=== PATIENT | male | born 1950 | race Caucasian/White ===

== ENCOUNTER 2023-05-31 15:59 | Inpatient (IN) | payer OTHER, SELFPAY ==
[2023-05-31] VITALS (40 sets, daily range): BP systolic 71–141; BP diastolic 40–99; PULSE 2; BMI 34.6; BMI 34.4; BMI 35.6
--- NOTE | 2023-05-31 13:19 | ED.GENMED ---
History of Present Illness
General
Chief Complaint: Abdominal Symptoms
Source: ambulance crew
Time Seen by Provider: 05/31/23 13:19
History of Present Illness
History of Present Illness:
This patient is a 73-year-old male who presents emergency department via medics because of 'coughing up blood'. The patient states that over the last few days he has had ongoing congestion associated with generalized weakness. He denies associated
fever, chills, nausea, vomiting, abdominal pain. 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 At that time, he had 3-4 episodes of coughing up blood, no clots noted. The blood is bright
red blood. He also notes that he had an episode of diarrhea today and it was black in color. Medics noted that patient was hypotensive with a systolic blood pressure of 70, which increased to 100 after 300 cc of normal saline. EMS EKG
unremarkable. Patient was noted to be hypoxic, but came up to 94% on 6 L of nasal cannula. Patient now feels weak and short of breath. When asked about pain he does note mild discomfort in the right anterior chest wall and lower back area. He is
unclear if it is pleuritic in nature. Patient is not on blood thinning medication, with the exception of aspirin.
Past History
Past History
ED Past Medical History: HTN
ED Past Surgical History: Cardiac (av replacement)
Social History
Tobacco: Non-smoker
Drug: None
Employment: Employed
Phy Exam
Physical Exam
Physical Exam:
GENERAL: Alert , in no apparent distress
EYE: pupils equal and reactive
NECK: Supple, no significant adenopathy.
ENT: o/p clr, mm slightly dry, dried blood noted about patient's lips
CARDIAC: Regular rate and rhythm .
LUNGS: Equal breath sounds bilaterally, diffuse rhonchi noted with scattered wheezing, no stridor
ABDOMEN: Soft, without focal tenderness, no r/g, no cvat
NEUROLOGICAL: Alert and oriented, no focal neuro deficits
SKIN: Warm and dry, skin intact.
MUSCULOSKELETAL: No edema, well perfused.
PSYCH: Normal and appropriate interaction.
Course
Orders/Labs/Results
Orders:
Orders
05/31/23 13:10
EKG [Electrocardiogram (*1)] Urgent
Reason for Study: Chest Pain
05/31/23 13:11
EKG- Treatment ONCE
05/31/23 13:13
Complete Blood Count/With Diff Urgent
Manual Differential Urgent
PTT Urgent
Prothrombin Time Urgent
05/31/23 13:16
CT Chest Pe Study Urgent
Comment:
Reason For Exam: coughing blood
05/31/23 13:19
Ipratropium/Albuterol Sulfate [Duoneb] 3 ml .ROUTE .STK-MED ONE
05/31/23 13:20
Ipratropium/Albuterol Sulfate [Duoneb] 3 ml INH R NOW STA
05/31/23 13:21
Lactate Level [Lactic Acid] Urgent
Blood Culture Q30M
ERIC Source: Blood/Venous
Specimen Description:
05/31/23 13:24
0.9% Sodium Chloride 250 ml [Nss] 250 ml IV BOLUS
Ipratropium/Albuterol Sulfate [Duoneb] 3 ml INH R NOW STA
05/31/23 13:39
Comprehensive Metabolic Panel Urgent
NT-proBNP Urgent
Troponin I Urgent
Blood Culture Q30M
ERIC Source: Blood/Venous
Specimen Description:
05/31/23 14:12
Type+Screen Urgent
BBK Wristband Number:
05/31/23 14:16
Morphine Sulfate 2 mg .ROUTE .STK-MED ONE
05/31/23 14:19
Morphine Sulfate 2 mg IV NOW STA
05/31/23 14:37
Piperacillin/Tazo 4.5 Gram [Zosyn] 4.5 gram in 100 ml IV NOW
05/31/23 14:48
NORepinephrine 4 MG/250 ML [Levophed] 4 mg in 250 ml .ROUTE .STK-MED
Propofol 1,000,000 Mcg/100 ml [Diprivan] 1,000,000 mcg in 100 ml .ROUTE .STK-MED
05/31/23 14:54
COVID-19 Antigen Urgent
Source: Nasal Swab
Influenza A+B Rapid Molecular Urgent
ERIC Source: Nasal Swab
Specimen Description:
05/31/23 15:07
ABG [Arterial Blood Gas] Urgent
%Oxygen/Room Air: 100
05/31/23 15:31
Admit/Transfer Patient As Directed
Co-Sign Provider:
Level of Care: Inpatient admission
Assign to:: ICU
Physician / Group: Ancelmo
Diagnosis: Pneumonia, Sepsis
Reason for Hospitalization: Above
Expected length of stay greater than two midnights?: Yes
ELOS- Estimated Length of Stay in days: 3
I certify the patient meets the requirements for IP care: Yes
05/31/23 15:34
Code Status As Directed
Resuscitation Status: Full Code
05/31/23 15:39
FentaNYL 1,000 MCG/100 ML [Sublimaze] 1,000 mcg in 100 ml .ROUTE .STK-MED
05/31/23 15:40
Portable Chest Xray [CR Chest Portable - 1 View] Urgent
Comment:
Reason For Exam: post intubation
Reason Study Needs to be Portable: Patient Unstable
Abnormal Lab Results
05/31/23 05/31/23 05/31/23
13:13 13:21 13:39
MCH 31.4 H pg
(27.0-31.0)
Plt Count 97 L 10^3/uL
(130-400)
Band Neutrophils 23 H %
(0-3)
Lymphocytes (Manual) 10 L %
(20-51)
PT 17.1 H Sec
(11.4-14.6)
pH
pCO2
pO2
ABG O2 Sat (Measured)
BUN 30 H mg/dl
(9-20)
Creatinine 2.4 H mg/dL
(0.7-1.3)
Glucose 109 H mg/dl
(70-99)
Lactic Acid 3.8 H mmol/L
(0.7-2.0)
Total Bilirubin 1.5 H mg/dl
(0.2-1.3)
05/31/23
15:07
MCH
Plt Count
Band Neutrophils
Lymphocytes (Manual)
PT
pH 7.21 L
(7.35-7.45)
pCO2 55 H mmHg
(35-48)
pO2 66 L mmHg
(83-108)
ABG O2 Sat (Measured) 92.1 L %
(94-98)
BUN
Creatinine
Glucose
Lactic Acid
Total Bilirubin
05/31/23 13:13
05/31/23 13:39
Vital Signs
Initial and Last Documented VS:
Initial Vital Signs
Pulse Resp Pulse Ox
82 27 99
05/31/23 13:24 05/31/23 13:24 05/31/23 13:24
Last Documented Vital Signs
Pulse Resp BP Pulse Ox
99 27 101/53 92
05/31/23 15:45 05/31/23 15:45 05/31/23 15:45 05/31/23 15:45
Update Note
Update Note:
Patient presents to the Emergency Department with _congestion, dyspnea, and coughing up blood
Number and Complexity of Problems Addressed at the Encounter
� Chronic conditions affecting care:
� Acute Exacerbation and/or Progression of Chronic Illness:
� Differential Diagnosis includes: PE, pneumonia/bronchitis, lung mass, bleeding disorder, etc.
Amount and/or Complexity of Data to be Reviewed and Analyzed
� I performed an independent evaluation of and my interpretation is:
EKG: Read by me, normal sinus rhythm with first-degree block, nonspecific T wave flattening laterally, no acute ischemia
CT:No evidence of central pulmonary embolism.
Large right upper lobe consolidation with air bronchograms most likely representing pneumonia. Endobronchial lesion within the posterior segment of the upper lobe of the right lung with postobstructive atelectasis cannot be excluded. Recommend
short-term follow-up Chest CT to confirm complete resolution.
Xrays:
Laboratory Studies:
Other:
� Review of other/old records reveals: None available
� Clinical information was obtained by an independent historian: EMS
� Prescriptions/Medications Considered but not given:
� Further testing considered but not performed:
Risk of Complications and/or Morbidity or Mortality of Patient Management
� Social determinants of health affecting care:
� Discussion with other providers (PCP, Hospitalists, Consultants, etc):
253pm....immediately after CT chest done, case d/w pulsarthak (mikhail), will see pt in ED. I then reviewed labs, etc, and started abx. bp remians stable. Hospitalist notified. However, just a few moments ago, called into room b/c of increased wob
and hypoxia on the 6L...noted to have pox of 78%. No cp. NRB applied while resp called, ox 94% on NRB, we are now applying bipap while preparing for intubation if needed.
� Escalation of care including admission/observation vs risk of discharge considered:
ED Attending Note
-
Portions of this chart may have been created with voice recognition software.� Occasional wrong word or��sound alike� substitutions may have occurred due to the inherent limitations of voice recognition software.
Discharge Plan
Departure
Patient Disposition: Admit
Date of Disposition: 05/31/23
Time of Disposition: 16:31
Admit to: ICU
Presentation/result/management discussed w/ accepting MD/DO: Hospitalist
[2023-05-31] MEDS: DUONEB 3 ML INH ×3 (13:29→20:41)
[2023-05-31 13:30] LABS: Hematocrit 44.6 % (39.0-52.0); Hemoglobin 15.2 g/dL (13.0-18.0); Mean Corp Hgb Conc. 34.1 g/dL (33.0-37.0); Mean Corpuscular Hgb 31.4 pg (27.0-31.0); Mean Corpuscular Volume 92.1 fL (80.0-94.0); Nucleated Red Blood Cells % 0 % (-); Red Blood Cell Count 4.84 10^6/uL (4.70-6.10); Red Cell Dist. Width 12.9 % (11.5-14.5); White Blood Cell Count 5.8 10^3/uL (4.8-10.8)
[2023-05-31] MEDS: NSS 250 IV ×2 (13:30→22:50)
[2023-05-31 13:39] LABS: INR 1.42; PT 17.1 Sec (11.4-14.6)
[2023-05-31 13:40] LABS: APTT 34.4 Sec (23.4-35.0)
[2023-05-31 13:42] LABS: Lactic Acid 3.8 mmol/L (0.7-2.0)
[2023-05-31 14:10] LABS: ALT (SGPT) 30 U/L (0-50); AST (SGOT) 39 U/L (17-59); Albumin 3.9 g/dl (3.5-5.0); Alkaline Phosphatase 62 U/L (38-126); Blood Urea Nitrogen 30 mg/dl (9-20); Calcium 8.8 mg/dl (8.4-10.2); Carbon Dioxide 27 mmol/L (22-30); Chloride 102 mmol/L (98-107); Estimated Creatinine Clearance 35 ml/min; Glucose 109 mg/dl (70-99); Potassium 3.9 mmol/L (3.5-5.1); Sodium 136 mmol/L (135-145); Total Bilirubin 1.5 mg/dl (0.2-1.3); Total Protein 7.1 g/dl (6.3-8.2); eGFR 27.45
[2023-05-31 14:18] LABS: NT-proBNP 8710 pg/ml; Troponin I < 0.012 ng/ml
[2023-05-31] MEDS: MORPHINE SULFATE 2 MG IV (14:20)
[2023-05-31 15:04] LABS: Mean Platelet Volume 10.3 fL (7.4-10.4); Platelet Count 97 10^3/uL (130-400)
[2023-05-31] MEDS: ZOSYN 100 IV (15:07)
[2023-05-31 15:08] LABS: Absolute Neutrophils -Man Diff 4.8 10^3/uL (1.4-6.5); Band Neutrophils 23 % (0-3); Lymphocytes 10 % (20-51); Monocytes 7 % (2-9); Segmented Neutrophils 60 % (42-75)
[2023-05-31 15:09] LABS: Normal RBC Morphology Yes; Platelets Checked Yes; Total Cells Counted 100
[2023-05-31 15:23] LABS: B.E. -6.5 mmol/L; O2 Saturation % 92.1 % (94-98); PCO2 55 mmHg (35-48); PO2 66 mmHg (83-108); pH 7.21 (7.35-7.45)
[2023-05-31 15:23] LABS: COVID-19 Antigen Negative (Negative)
--- NOTE | 2023-05-31 15:24 | EDRN ---
Hospitalist at the bedside. This RN updated Dr. Godfrey of the status of the patient on the BiPap - when speaking the SPO2 drops down to 80% and takes a few minutes to recover.
--- NOTE | 2023-05-31 15:41 | EDRN ---
Patient unable to tolerate the BiPap as evidenced by tachypnea, head bobbing, desaturation with speaking and movement.
Intubation to be completed by Dr. Godfrey
Etomidate 20mg IVP at 1545
Anectine 125mg IVP at 1547
7.5 ETT placed 24 at the lips with positive color change, equal bilateral breath sounds SPO2 was 96% and ETCO2 57.
--- NOTE | 2023-05-31 15:43 | HPS.HSE ---
Family Physician
-
Family Physician: Marlon Ramsey
Chief Complaint
-
Shortness of breath.
History of Present Illness
Patient is a 73 years old male with history of diabetes, hypertension, obstructive sleep apnea, aortic stenosis status post aortic valve replacement who presents to the emergency room with 3 to 4 days of upper respiratory symptoms that patient
describes as congestion. Patient has been taking DayQuil. He had developed worsening of his symptoms with now persistent cough and hemoptysis. He also complains of loose stools over the last 24 to 48 hours. He had not been taking any
antibiotics. 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 He presents to the emergency room with severe worsening of shortness of breath, cough with reported hemoptysis. He denies any fever.
While in the emergency room patient found to be severely hypoxic with pulse ox down to low 80s on room air. In addition he was found to be hypotensive.
His further workup with CT scan of the chest showed large right upper lobe pneumonia and study was negative for pulmonary embolism.
Patient initiated on BiPAP, Zosyn, given bolus of IV fluids.
At the time of my examination patient is in upright position with increased work of breathing, noted to be lethargic, remains hypotensive after initial 250 mL of fluid bolus.
Medical History
Past Medical History
Past Medical History: Reports HTN, NIDDM and Other (Obstructive sleep apnea on CPAP at night.); Denies Arrhythmia, Cancer, CHF or COPD
Past Surgical History: Reports Other (Bioprosthetic aortic valve 2015 at [facility])
Social History
Tobacco: Non-smoker
Drug: None
Personal:
Living: With Family
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
Family History
Family History: Not pertinent
Allergies / Home Medications
Allergies reflects when Allergies were last updated in [facility].
Home Medications with original date entered in [facility]
Allergy/Medication List:
Allergies
Allergy/AdvReac Type Severity Reaction Status Date / Time
bee venom protein (honey bee) Allergy Hives Verified 05/31/23 13:24
Home Medications
Dayquil 1 dose PO DAILYPRN PRN cough 05/31/23
aspirin 81 mg tablet,delayed release 81 mg PO DAILY 05/31/23
atorvastatin 10 mg tablet 10 mg PO DAILY 05/31/23
bimatoprost 0.01 % eye drops (Lumigan) 1 drp BOTH EYES DAILY 05/31/23
celecoxib 200 mg capsule 200 mg PO DAILY 05/31/23
kywfgtdpf-AVO-UF-acetaminophen 7.5 mg-60 [id number]/30mL oral liqd 30 ml PO HSPRN PRN cough 05/31/23
empagliflozin 10 mg tablet (Jardiance) 10 mg PO DAILY 05/31/23
esomeprazole magnesium 40 mg capsule,delayed release 40 mg PO DAILY 05/31/23
finasteride 5 mg tablet 5 mg PO DAILY 05/31/23
lisinopril 2.5 mg tablet 2.5 mg PO DAILY 05/31/23
metformin 500 mg tablet 1,000 mg PO BID 05/31/23
metoprolol succinate 25 mg tablet,extended release 24 hr 25 mg PO DAILY 05/31/23
timolol maleate 0.5 % eye drops 1 drp BOTH EYES BID 05/31/23
Review of Systems
-
A 12 point ROS was completed and negative except as noted: Yes
Respiratory: Reports See HPI
Physical Exam
Vital Signs
Vital Signs
Pulse Resp BP Pulse Ox
94 31 110/99 92
05/31/23 14:15 05/31/23 14:15 05/31/23 14:15 05/31/23 14:15
Physical Exam
General: Well Developed, Well Nourished and No Apparent Distress
HEENT: NormoCephalic, Moist mucous membranes and Atraumatic
Respiratory: Clear
Cardiac: S1/S2 and Regular Rhythm; No Murmur or Rub
GI: Soft, Non Tender, Non Distended and Normal Bowel Sounds; No Organomegaly
Rectal: Deferred by Provider
Musculoskeletal: No Clubbing, No Cyanosis and No Edema
Skin: No Rash
Neuro: Nonfocal/grossly intact
Laboratory Results
-
05/31/23 13:13
05/31/23 13:39
Laboratory Results
PT 17.1 Sec (11.4-14.6) H 05/31/23 13:13
INR 1.42 05/31/23 13:13
APTT 34.4 Sec (23.4-35.0) 05/31/23 13:13
pH 7.21 (7.35-7.45) L 05/31/23 15:07
pCO2 55 mmHg (35-48) H 05/31/23 15:07
pO2 66 mmHg (83-108) L 05/31/23 15:07
HCO3 22.0 mmol/L (21-28) 05/31/23 15:07
Lactic Acid 3.8 mmol/L (0.7-2.0) H 05/31/23 13:21
Total Bilirubin 1.5 mg/dl (0.2-1.3) H 05/31/23 13:39
AST 39 U/L (17-59) 05/31/23 13:39
ALT 30 U/L (0-50) 05/31/23 13:39
Alkaline Phosphatase 62 U/L (38-126) 05/31/23 13:39
Troponin I < 0.012 ng/ml 05/31/23 13:39
Data Reviewed
-
CT Scan: Report Reviewed by me
Lab Data: Labs Reviewed by me
Impression/Plan
-
IMPRESSION:
Acute hypoxic/hypercarbic respiratory failure.
Large right upper lobe pneumonia, community-acquired
Hemoptysis reported
Severe sepsis secondary to pneumonia.
Septic shock with hypotension.
Lactic acidosis.
Acute kidney injury.
Mild hyperbilirubinemia
Conditions prior to admission:
Diabetes type 2 [id number].
Dyslipidemia.
Hypertension.
Obstructive sleep apnea on CPAP at night.
Status post bioprosthetic aortic valve 2015.
Obesity with BMI of 34
PLAN:
Acute hypoxic/hypercarbic respiratory failure
Large right upper lobe pneumonia, community-acquired. Given size of infiltrate, as well as hemoptysis high suspicion for underlying lung mass.
Severe sepsis secondary to above
Septic shock with lactic acidosis and acute kidney injury.
Critically ill.
Admit to ICU.
Continue BiPAP
Follow-up with ABG.
If worsening respiratory distress, low threshold for intubation.
Broad-spectrum antibiotics vancomycin/Zosyn pending sputum and blood cultures.
Quantify hemoptysis.
Serial lactic acid level.
[employer] Director consultation
Acute kidney injury secondary to hypotension.
Bladder scan to exclude retention.
IV fluid bolus.
May require vasopressors.
Hold lisinopril.
Essential hypertension.
Hold preadmission lisinopril and metoprolol due to hypotension.
Type 2 diabetes.
Update hemoglobin A1c.
Hold oral medications including metformin and Jardiance.
N.p.o. given aspiration risk in patient with severe respiratory distress.
Basal bolus protocol with serial Accu-Cheks.
IV PPI.
DVT prophylaxis with heparin with caution given reported hemoptysis.
--- NOTE | 2023-05-31 15:57 | W.PN.UPDATE ---
Update Note
Progress Note Update
With worsening respiratory distress and hypotension patient required intubation while in ED
Upon intubation blood noted in tube, on suction иван red blood
Remains with poor saturations.
Will hold heparin and aspirin.
May need endobronchial evaluation.
--- NOTE | 2023-05-31 16:12 | CON.INTV ---
Consultation
Consultation Request
Date/Time Consultation Requested: 05/31/2023 - 1600
Date/Time Consultation Performed: 05/31/2023 - 1611
Requesting Provider: Dr. Ag
Performing Provider: Dr. Araujo
Reason for Consultation: Pneumonia; on ventilator
Medical History
-
Chief Complaint: SOB
History of Present Illness:
73-year-old male with past medical history of DM 2, hypertension, TEJ, and aortic stenosis s/p aortic valve replacement who presents with SOB with congestion for 3-4 days. He also endorsed hemoptysis with worsening cough. In the ER he was found to
be severely hypoxic with SpO2 in the low 80s on room air. Patient also hypotensive. CT scan showed a severe right upper lobe pneumonia. Patient on BiPAP and given antibiotics and IV fluids however respiratory status deteriorated further and he
was intubated. Patient now being transferred to ICU for further care and cable supervisor services consulted for additional management/recommendations.
When I saw the patient the was hypoxic to 83%, with dark red blood being suctioned from ETT. I spoke to family who said that he went fishing the other day and later on in week developed a cough that was associated with bloody phlegm. His symptoms
of cough and shortness of breath progressed which led him to come here to the ICU. No other history of recent pneumonia. No recent travel. No blood thinners besides baby aspirin.
PMHx: HTN, NIDDM, obstructive sleep apnea on CPAP
PSHx: Bioprosthetic aortic valve (2014 � [facility])
Past Medical History
Past Medical History: Other (Above as per HPI)
Past Surgical History: Other (Above as per HPI)
Social History
Tobacco: Non-smoker
Alcohol: None
Drug: None
Personal:
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
Family History
Family History: Reviewed & Not Pertinent
Allergies / Home Medications
Allergies
Allergy/AdvReac Type Severity Reaction Status Date / Time
bee venom protein (honey bee) Allergy Hives Verified 05/31/23 13:24
Home Medications
�Medication �Instructions �Recorded �Confirmed �Last Taken �Type
Dayquil 1 dose PO DAILYPRN PRN cough 05/31/23 05/31/23 05/31/23 History
aspirin 81 mg tablet,delayed 81 mg PO DAILY 05/31/23 05/31/23 05/31/23 History
release
atorvastatin 10 mg tablet 10 mg PO DAILY 05/31/23 05/31/23 05/31/23 History
bimatoprost 0.01 % eye drops 1 drp BOTH EYES DAILY 05/31/23 05/31/23 05/31/23 History
(Lumigan)
celecoxib 200 mg capsule 200 mg PO DAILY 05/31/23 05/31/23 05/31/23 History
iugepzixm-YUK-AX-acetaminophen 7.5 30 ml PO HSPRN PRN cough 05/31/23 05/31/23 05/30/23 History
mg-60 [id number]/30mL oral liqd
empagliflozin 10 mg tablet 10 mg PO DAILY 05/31/23 05/31/23 05/31/23 History
(Jardiance)
esomeprazole magnesium 40 mg 40 mg PO DAILY 05/31/23 05/31/23 05/31/23 History
capsule,delayed release
finasteride 5 mg tablet 5 mg PO DAILY 05/31/23 05/31/23 05/31/23 History
lisinopril 2.5 mg tablet 2.5 mg PO DAILY 05/31/23 05/31/23 05/31/23 History
metformin 500 mg tablet 1,000 mg PO BID 05/31/23 05/31/23 05/31/23 History
metoprolol succinate 25 mg 25 mg PO DAILY 05/31/23 05/31/23 05/31/23 History
tablet,extended release 24 hr
timolol maleate 0.5 % eye drops 1 drp BOTH EYES BID 05/31/23 05/31/23 05/31/23 History
Review of Systems
-
Unable to Obtain full review of systems at this time due to: Acuity and Patient Intubation
Vitals / Labs / Diagnostic Testing
Vital Signs
Pulse Resp BP Pulse Ox
99 27 101/53 92
05/31/23 15:45 05/31/23 15:45 05/31/23 15:45 05/31/23 15:45
Lab Data
05/31/23 13:13
05/31/23 13:39
Laboratory Results
05/31/23 05/31/23
13:13 15:07
PT 17.1 H
INR 1.42
APTT 34.4
pH 7.21 L
pCO2 55 H
pO2 66 L
HCO3 22.0
O2 Delivery Level
Microbiology
05/31/23 14:54 Nasal Swab Influenza Types A & B (KATIA) - Final
Negative for Influenza A & B, NAAT
Negative results must be combined with clinical observations
and patient history.
Nucleic Acid Amplification test (NAAT)performed on the
[employer] platform.
Diagnostic Testing:
Physical Exam
-
HEENT: Normocephalic and Anicteric
Cardiovascular: S1/S2 and Peripheral Edema (Negative)
Respiratory: Wheeze (negative), Rales (Bibasilar), Rhonchi (Left-sided) and Other (ETT in place; mechanical breath sounds heard bilaterally)
GI: Soft, Non Tender, Normal Bowel Sounds and Other (Abdominal obesity)
Neurology: Other (Unresponsive/sedated)
Skin: Warm and Dry
General: Comfortable and Chills (Negative)
Assessment
-
Assessment: 73-year-old male with past medical history of DM 2, hypertension, TEJ, and aortic stenosis s/p aortic valve replacement who presents with SOB with congestion for 3-4 days. He also endorsed hemoptysis with worsening cough. In the ER he
was found to be severely hypoxic with SpO2 in the low 80s on room air. Patient also hypotensive. CT scan showed a severe right upper lobe pneumonia. Patient on BiPAP and given antibiotics and IV fluids however respiratory status deteriorated
further and he was intubated. Patient now being transferred to ICU for further care and cable supervisor services consulted for additional management/recommendations.
Chronic conditions WRAPPER OFF: HTN, NIDDM, Obstructive sleep apnea on CPAP at night
Impression:
#Right upper lobe pneumonia/CAP
#Hemoptysis assist likely due to severe RUL pneumonia
#Acute hypoxic/hypercapnic respiratory failure due to above now on mechanical ventilation
#Acute kidney injury
#Lactic acidosis likely due to sepsis with impending shock
Plan:
- Retract ETT x 3-4 cm
- Administer 2-3L of NS 0.9% given his sepsis with impending shock (IBW: 50kg)
- Continue mechanical ventilation with daily SAT/SBT if clinically appropriate
- Trend blood gas daily with vent adjustments as needed
- Broad-spectrum antibiotics with infectious workup including sputum Cx, MRSA swab, urine antigens for Legionella/strep pneumonia, blood cultures
- Check urinalysis with reflex to urine culture
- Trend CBC and transfuse if needed to keep Hb>7, plt>50k
- If hemoptysis worsens then will consider bronchoscopy for airway visualization
- Maintain SpO2 >90-94%
- Maintain MAP>65
- Replete electrolytes with K>4, Mg>2
- Maintain euglycemia with goal BG 140-180
- nebulized bronchodilators q4hr for first 24 hrs
- Incentive spirometer
- DVT ppx � hold off on chemical prophylaxis for now given his hemoptysis
Critical care statement: A total of 40 minutes of critical care time was provided for this patient today. This includes management of unstable vital signs, evaluation of the patient at bedside, reviewing the patient's pertinent medical records
including radiographs, microbiology, laboratory evaluations, and discussion with primary team, consultants, pharmacy, nutrition, physical therapy, case management, charge nurse, critical care nursing, and respiratory therapy.
Data:
CTA Chest 05-31-2023:
No evidence of central pulmonary embolism.
Large right upper lobe consolidation with air bronchograms most likely representing pneumonia. Endobronchial lesion within the posterior segment of the upper lobe of the right lung with postobstructive atelectasis cannot be excluded. Recommend
short-term follow-up Chest CT to confirm complete resolution.
CXR 05-31-2023:
The endotracheal tube tip projects at the level of the bárbara. Recommend retraction by 3-4 cm.
Sternotomy wires, mediastinal clips, and an aortic valve prosthesis. Right upper lobe airspace consolidation compatible with pneumonia. No large pleural effusion or pneumothorax. The cardiomediastinal silhouette is stable. Chronic degenerative
changes of the spine.
[2023-05-31 17:12] LABS: Glucose - Point of Care 85 mg/dl (70-99)
[2023-05-31] MEDS: NSS 500 IV (17:47)
[2023-05-31] MEDS: LEVOPHED 250 IV ×2 (17:47→22:45)
[2023-05-31 18:11] LABS: Lactic Acid 3.8 mmol/L (0.7-2.0)
[2023-05-31 18:14] LABS: Triglycerides 149 mg/dl (10-149)
[2023-05-31] MEDS: VANCOCIN 540 MG IV (18:28)
[2023-05-31] MEDS: NSS 1000 IV (18:28)
[2023-05-31] MEDS: TYLENOL ORAL SOLUTION 650 MG TUBE (18:32)
[2023-05-31 19:05] LABS: TSH Reflex To Free T4 2.62 uIU/ml (0.47-4.68)
--- NOTE | 2023-05-31 19:07 | PHA.VAN.IN ---
Assessment
- Assessment
Renal Function: Unknown baseline
Maximum Temperature: 103 F rectal 05/30 @ 1800
Concomitant Antimicrobials: piperacillin/tazobactam
Plan
- Plan
Initial / Loading Dose: vanc 2000mg
Maintenance Regimen: dosing by level
Monitoring: random level 05/31 0600
MRSA Screen: Ordered per protocol
Pharmacokinetics Vancomycin I
- -
Patient Age: 73
Patient Sex: Male
Vancomycin Day #: 1
Indication: Pulmonary/Respiratory
Requesting Provider: Dr. Ag
Pertinent Antimicrobial Allergies:
no pertinent antimicrobial allergies
Height / Weight:
Height 6 ft
Actual Weight 115 kg
Pertinent Past Medical History: BMI ~34
- Vital Signs / Lab Results
Temp Pulse Resp BP Pulse Ox
103.0 F H 98 20 73/53 94
05/31/23 18:00 05/31/23 17:17 05/31/23 17:17 05/31/23 17:17 05/31/23 16:55
Lab Results - Hematology
05/31/23
13:13
WBC 5.8
Band Neutrophils 23 H
Lab Results - Chemistry
05/31/23 05/31/23
13:13 13:39
BUN Cancelled 30 H
Creatinine Cancelled 2.4 H
Estimated Creat Clear Cancelled 35
Albumin Cancelled 3.9
05/31/23 05/31/23
13:21 17:42
Lactic Acid 3.8 H 3.8 H
Microbiology Results
05/31/23 17:17 Gram Stain - Preliminary
Sputum
05/31/23 14:54 Influenza Types A & B (KATIA) - Final
Nasal Swab Negative for Influenza A & B, NAAT
Negative results must be combined with clinical observations
and patient history.
Nucleic Acid Amplification test (NAAT)performed on the
[employer] platform.
[2023-05-31 19:18] LABS: Magnesium 1.4 mg/dl (1.6-2.3); Phosphorus 3.8 mg/dl (2.5-4.5)
--- NOTE | 2023-05-31 19:28 | PTCARENOTE ---
Received pt from ER into rm [id number] intubated/sedated. Pt. opens eyes spontaneously, no tracking, does not follow commands. ST on monitor. +1 anasarca. ETT #7.5, 23 @ lip on R side. SpO2 97% on vent settings AC450/20/.100/+12. Mod-lg amt of
thin/bloody secretions. Auscultated coarse breath sounds throughout R lung field. Hypoactive BS, abd round/firm/distended/obese. R nare dobhoff inserted @ 65cm. Godfrey in place draining dark yellow/carl urine. ETT and dobhoff placement confirmed
w x-ray; Dr. Araujo to bedside to review results. Prop/fent- titrated per orders, see flow sheet. Levo gtt initiated to keep MAP >65- see flow sheet. #18 L hand and #18 R AC patent, dressings c/d/i. Family @ beside, updated on plan of care.
Report given to oncoming medical representative RN.
[2023-05-31 19:46] LABS: Cortisol, Random 87.1 ug/dl
[2023-05-31] MEDS: TIMOPTIC 0.5% OPHTHALMIC SOLUTION 1 DROP BOTH EYES (19:59)
[2023-05-31] MEDS: SENNA SYRUP TUBE (20:00)
--- NOTE | 2023-05-31 20:00 | PTCARENOTE ---
Rec'd pt sedated on fent & diprivan gtt, awakens with stimulation, wrsits restrained for pt safety, BAER spont, prince at 2mm, sluggish, temp 102.6, cooling blanket on, to keep MAP > 65 w/ levophed- see flow sheet for updated, Sinus tach, weak pulses,
dusky color, skin cool, # 7.5 oral ett- moved to left side at 23 cm, resp changed vent to APV, tv 450, 12 peep, 100%, sat 89-90, lungs coarse, bloody secretions, hypo bowel sounds, inc loose brown stool, rectal trumpet inserted, left dobhoff clamped
for meds, abd obese, wilson w/ scant carl urine
[2023-05-31 20:09] LABS: Urine Albumin 2+ (Neg - Trace); Urine Bilirubin 1+ (Negative); Urine Character Clear (Clear); Urine Glucose 1+ (Negative); Urine Ketone Trace (Negative); Urine Leukocyte Trace (Negative); Urine Nitrite Negative (Negative); Urine Occult Blood 1+ (Negative); Urine Specific Gravity 1.015 (<1.030); Urine Urobilinogen Negative (Neg - 1+)
[2023-05-31 20:10] LABS: Urine Color Yellow
[2023-05-31 20:22] LABS: Urine Squamous Cell 0-2 /LPF (Few)
[2023-05-31 20:23] LABS: Urine White Cell 0-2 /HPF (0-5)
--- NOTE | 2023-05-31 20:30 | PTCARENOTE ---
R DL PIcc inserted by VAT team, cxr obtained, ok to use per iv team, all tubings changed; B Fina, NPm aware of urine output, no orders recd
[2023-05-31] MEDS: MAGNESIUM SULFATE 50 IV (20:32)
[2023-05-31 22:11] LABS: Venous Blood Gas B.E. -12.4 mmol/L (-4 to +4); Venous Blood Gas HCO3 19.8 mmol/L (22-27); Venous Blood Gas O2 Sat % 94.6 %; Venous Blood Gas pO2 70 mmHg (30-50)
[2023-05-31 22:12] LABS: Venous Blood Gas pH 7.03 (7.32-7.43)
[2023-05-31 22:13] LABS: Venous Blood Gas pCO2 75 mmHg (35-48)
[2023-05-31] MEDS: SUBLIMAZE 50 MCG IV (22:15)
--- NOTE | 2023-05-31 22:15 | PTCARENOTE ---
inc of stool, - rectal trumpet leaking, fecal mgmt suys inserted
[2023-05-31 22:23] LABS: Lactic Acid 3.3 mmol/L (0.7-2.0)
[2023-05-31] MEDS: ZOSYN 50 IV (22:43)
--- NOTE | 2023-05-31 22:50 | PTCARENOTE ---
nss bolus given as ordered for scaNT URINE OUTPUT & BP, b mamie Dupont AWARE OF LABS, Titrating levophed for bp
[2023-05-31] MEDS: OFIRMEV 100 IV (23:00)
--- NOTE | 2023-05-31 23:00 | PTCARENOTE ---
TV incr to 500, ofirmiv 1 gm iv given for temp
[2023-05-31] MEDS: DIPRIVAN 100 IV (23:18)
--- NOTE | 2023-05-31 23:30 | PTCARENOTE ---
Dr novak notified of inability to maintain sat & bloody secretions
0000- changed to ac 24, tv 500, 12 peep, 100%, sats cont 88%, , vasopressin added for low MAP, 1 amp sodium bicarb iv given, to keep left lung donw, CHG bath done
0030 ac incr to 28 by resp
[2023-05-31 23:50] LABS: Venous Blood Gas B.E. -13.9 mmol/L (-4 to +4); Venous Blood Gas HCO3 18.4 mmol/L (22-27); Venous Blood Gas O2 Sat % 91.3 %; Venous Blood Gas pO2 63 mmHg (30-50)
[2023-05-31 23:53] LABS: Venous Blood Gas O2 Therapy 100%
[2023-05-31 23:54] LABS: Venous Blood Gas pCO2 73 mmHg (35-48); Venous Blood Gas pH 7.01 (7.32-7.43)
[2023-05-31 23:55] LABS: Glucose - Point of Care 76 mg/dl (70-99)
[2023-06-01] VITALS (27 sets, daily range): BP systolic 67–145; BP diastolic 34–93; BMI 37.2
[2023-06-01] MEDS: SODIUM BICARBONATE 50 MEQ IV ×6 (00:04→20:46)
[2023-06-01] MEDS: SUBLIMAZE 100 IV ×3 (00:10→18:11)
--- NOTE | 2023-06-01 00:45 | PTCARENOTE ---
left rad jey inserted by Katt Harden POUNCING MACHINE OPERATOR
[2023-06-01 00:50] LABS: HCO3 18.4 mmol/L (21-28); PCO2 54 mmHg (35-48); PO2 61 mmHg (83-108)
[2023-06-01 00:51] LABS: O2 Therapy 2L NC
[2023-06-01 00:52] LABS: pH 7.14 (7.35-7.45)
--- NOTE | 2023-06-01 01:00 | PTCARENOTE ---
cooling blanket off, temp 99.6, Dr Arita in to bronch pt- see report, family updated after procedure by Dr Arita and in to see pt
[2023-06-01] MEDS: SUBLIMAZE 50 MCG IV ×5 (01:01→22:25)
[2023-06-01] MEDS: ADRENALIN 1 MG/10 ML IV ×2 (01:27→01:34)
--- NOTE | 2023-06-01 01:37 | W.PN.UPDATE ---
Update Note
Progress Note Update
�
Procedure Note: Arterial Line�
� Left Wrist Arrow 20 (04/11)�
Diagnosis:��PNA
IV Line Comments: Uneventful Procedure�
Danny's test completed pre-procedure: Yes�
A-Line Comments: Sterile technique as per standard protocol, Ultrasound guided insertion�
Functioning A-line in situ: Yes�
A-line Insertion Start Time:��0030
A-line in at:��0035
--- NOTE | 2023-06-01 01:47 | W.SUR.POST ---
Addendum entered and electronically signed by Archie Araujo MD 06/01/23 13:36:
Date of service is: 06/01/2023.
Original Note:
Surgical Immediate Post Op
Note
Bedside Bronchoscopy Procedure Note
Pre Op Diagnosis: Life-threatening hemoptysis; acute hypoxia; ventilator dependent respiratory failure
Post Op Diagnosis: Same as above
Procedure Performed: Diagnostic/therapeutic bronchoscopy
Primary Surgeon/proceduralist: Dr. Archie Araujo
Secondary Surgeons: N/A
Anesthesia: N/A
Estimated Blood Loss: 15cc (not due to procedure but due to patient's lung pathology)
Fluids: N/A
Drains/Shunts: N/A
Specimens/Cultures: N/A
Doppler/Duplex/Angio (Y/N): N/A
Complications: N/A
Procedure/Operative Findings: No consent obtained due to emergent nature of procedure. Portable diagnostic bronchoscopy was performed due to massive hemoptysis. After bronchoscope was inserted into the airway via ETT, blood was seen inside the ETT
without occlusion, and the bárbara was sharp. Dark red, bubbly blood without clots was seen throughout the tracheobronchial tree. Therapeutic suctioning was performed and active hemorrhage was seen in the left upper lobe at the entryway to the
lingular division. Combination of chilled NS 0.9% (total of 30cc), epinephrine 1:1000 (total of 12mL) and thrombin (5,000 units, 5mL total) was instilled with complete hemostasis achieved at the procedure's end. The bilateral tracheobronchial tree
was reevaluated and all bronchi were patent down to segmental level. The bronchoscope was removed entirely from the patient's airway via ETT and the procedure ended. There were no immediate complications. Family was updated after the procedure
and all questions were answered.
[2023-06-01] MEDS: NSS 1000 IV ×2 (01:51→03:27)
--- NOTE | 2023-06-01 02:00 | PTCARENOTE ---
Katt Stephenson NP aware of no urien output;1 liter nss hung per order,
0230- Katt Stephenson NP aware of labsTV incr to 540 by resp , to keep sat >=88; per Dr Arita - to keep pt pos on left side for the night and avoid suction if possible
[2023-06-01 02:08] LABS: Hematocrit 41.6 % (39.0-52.0); Hemoglobin 14.1 g/dL (13.0-18.0); Mean Corp Hgb Conc. 33.9 g/dL (33.0-37.0); Mean Corpuscular Hgb 31.9 pg (27.0-31.0); Mean Corpuscular Volume 94.1 fL (80.0-94.0); Platelet Count 93 10^3/uL (130-400); Red Blood Cell Count 4.42 10^6/uL (4.70-6.10); Red Cell Dist. Width 13.5 % (11.5-14.5); White Blood Cell Count 2.5 10^3/uL (4.8-10.8)
--- NOTE | 2023-06-01 02:08 | W.PN.UPDATE ---
Update Note
Progress Note Update
Called in to hospital due to massive hemoptysis which is progressively worsening with severe hypoxia with SpO2 down to the mid 80s despite maximal ventilatory adjustments. Emergent bronchoscopy performed with active hemorrhage seen in the lingula.
Combination of chilled saline, instilled epinephrine and thrombin given with hemostasis achieved. Ventilator was adjusted to maximize oxygenation and ventilation given patient's continued respiratory acidosis. Family updated after bronchoscopy and
all questions were answered. Patient is currently on Levophed at 15mcg/min and vaso + IVF with NS 0.9% infusion @ 125mL/hr.
Pertinent physical exam:
Critically ill obese man on ventilator; sedated; blood seen in ETT suction tubing
NC/AT
Thick neck
+S1/S2; -m/r/c
Mechanical breath sounds heard bilaterally; rhonchi heard bilaterally; no wheezing
S/NT
No LE edema
Vitals, labs, imaging, micro all personally reviewed.
Impression:
#Life-threatening hemoptysis
#Acute respiratory failure with hypoxia and hypercapnia
#CAP
#Septic shock in setting of airway hemorrhage
#Lactic acidosis
#RACHEL
#Obesity
Plan:
- Insert A-line
- Vent adjusted by lowering inspiratory time, adjusting inspiratory wave and keeping plateau pressure <35, goal driving pressure 15-20, peak <40 and SpO2 >88%
- Serial blood gas to ensure pH>7.2
- Check ANCA Ab and anti-glomerular basement membrane Ab
- Start nebulized TXA 500mg TID x 3-5 days
- Give amp of bicarb given acidosis and lactic acidosis
- Continue vasopressors with goal MAP>65
- Give supplemental albumin to maintain albumin level >3g/dL
- Start stress dose steroids with solu-cortef 50mgIV q6hr
- Trend CBC and coags with fibrinogen; transfuse to keep Hb>7, plt>50k and INR<1.8; fibrinogen >150
- Plan to re-look with bronch in AM to see if pt still bleeding
- Pt remains full code
- Guarded prognosis
Critical care statement: A total of 40 minutes of critical care time was provided for this patient today. This includes management of unstable vital signs, evaluation of the patient at bedside, reviewing the patient's pertinent medical records
including radiographs, microbiology, laboratory evaluations, and discussion with primary team, consultants, pharmacy, nutrition, physical therapy, case management, charge nurse, critical care nursing, and respiratory therapy.
[2023-06-01] MEDS: LEVOPHED 250 IV (02:19)
[2023-06-01 02:20] LABS: HCO3 17.6 mmol/L (21-28); O2 Saturation % 89.1 % (94-98); PCO2 54 mmHg (35-48)
[2023-06-01] MEDS: DUONEB 3 ML INH ×6 (02:21→19:59)
[2023-06-01] MEDS: THROMBIN 5000 UNIT TOPICAL (02:23)
[2023-06-01 02:24] LABS: O2 Therapy 100%
[2023-06-01 02:29] LABS: PO2 56 mmHg (83-108); pH 7.12 (7.35-7.45)
[2023-06-01 02:39] LABS: ALT (SGPT) 33 U/L (0-50); AST (SGOT) 68 U/L (17-59); Albumin 2.6 g/dl (3.5-5.0); Alkaline Phosphatase 53 U/L (38-126); Blood Urea Nitrogen 38 mg/dl (9-20); Calcium 7.4 mg/dl (8.4-10.2); Carbon Dioxide 17 mmol/L (22-30); Chloride 107 mmol/L (98-107); Estimated Creatinine Clearance 25 ml/min; Glucose 89 mg/dl (70-99); Magnesium 2.2 mg/dl (1.6-2.3); Phosphorus 7.5 mg/dl (2.5-4.5); Potassium 4.6 mmol/L (3.5-5.1); Sodium 136 mmol/L (135-145); Total Bilirubin 1.9 mg/dl (0.2-1.3); Total Protein 5.4 g/dl (6.3-8.2); eGFR 18.07
[2023-06-01] MEDS: TRANEXAMIC ACID 500 MG INH ×4 (02:45→19:59)
[2023-06-01 02:46] LABS: Lactic Acid 3.8 mmol/L (0.7-2.0)
[2023-06-01] MEDS: FLEXBUMIN 100 IV ×3 (02:54→12:13)
--- NOTE | 2023-06-01 02:56 | RESPNOTE ---
Pt was placed on APVcm @ 2042 20*450*+12*100%. Ramos Harden and Dr. Archie Araujo made aware on vent mode change at this time and continue conversation through [employer]. Notified @ 2244 pt C02 was now 70. Pt tidal volume increased to 500.
Another VBG drawn about 20 minutes after vent changes CO2 now 73. Pt then placed back on (S) CMV 24*500*12*100% at midnight. RR increased at this time. Jorge notified again of changes and in discussion with him to come in to do bedside brocnh
scope. ABG drawn bronchial on new settings, ph 7.14 and CO2 54. Disposable bronch scope set up. Araujo arrived for bedside bronch scope was and found to have an active bleed. EPI pushes and thrombin given during procedure. TXA order for one time
dose at 0230 am to be given and then TID. Pt now has an A-Line and the gas from 0200 ph 7.12 C02 54. Araujo is OK with pulse ox > 88%. Post bronch, we adjusted vent settings to (S) CMV 28*540*12*100%, would like minute ventilation above 14 with
plat pressure below 35. Another ABG will be drawn soon. Currently pulse ox is 91% at 0310 am. Roberto Sheehan and Dr. Guzman all made made aware of all changes made to vent since the start of 7pm shift.
--- NOTE | 2023-06-01 03:00 | PTCARENOTE ---
1 amp sodium bicarb iv given per order, epi gtt started- see flow sheet for updates, ett repos in center at 23 cm
[2023-06-01] MEDS: SOLU-CORTEF 50 MG IV ×4 (03:02→21:51)
[2023-06-01] MEDS: ADRENALIN 250 IV (03:24)
[2023-06-01] MEDS: ZOSYN 50 IV (03:45)
--- NOTE | 2023-06-01 03:45 | W.PN.UPDATE ---
Update Note
Progress Note Update
Events overnight
2020 PICC line placed, Levophed @ 10mcg/hr
2127 Vent changes made by respiratory therapist due to�poor compliance with ventilator and respiratory therapist update changes with Dr. Araujo�
2245 VBG back () �
2300 Respiratory increased TV to 500ml/hr, �
2315 Ventilation discussed with�Dr. Araujo, plan to go back to volume control if no improvement.�
2230 VBG = �
2337: Hemodynamic becoming more unstable vasopressin added/sodium bicarbonate bolus given for acidosis�
2350: Patient changed back to AC 100/24/500/12�
0000: Discussed ventilation issues with Dr. Araujo, concern for bleeding based on иван blood with suctioning, decision made to emergently bronchoscope patient. �
0030 Moon placed = ABG�7.14/54/61�
0110 Dr. Araujo at bedside to start bronchoscope. Updated family in waiting room.�
0235 Vent increased to 100/28/540/12�
0245 Epinephrine started for poor hemodynamics�
0340 Abg =7.14/49/64; O2 sat improving to 94. Sodium bicarb drip started. �
[2023-06-01 03:48] LABS: B.E. -12.3 mmol/L; HCO3 16.7 mmol/L (21-28); O2 Saturation % 93.7 % (94-98); PCO2 49 mmHg (35-48); PO2 64 mmHg (83-108)
[2023-06-01 03:56] LABS: O2 Therapy 100%
[2023-06-01 03:57] LABS: pH 7.14 (7.35-7.45)
[2023-06-01 04:00] LABS: INR 1.98; PT 22.4 Sec (11.4-14.6)
--- NOTE | 2023-06-01 04:00 | PTCARENOTE ---
sys reviewed, sats 92%, Katt Harden np awre of abd, 1 gm calcium chloride iv given per order
[2023-06-01 04:01] LABS: APTT 41.6 Sec (23.4-35.0); Fibrinogen 634 MG/DL (199-459)
[2023-06-01] MEDS: CALCIUM CHLORIDE 10% SYRINGE 60 MG IV (04:10)
[2023-06-01] MEDS: LEVOPHED 258 MG IV ×4 (04:30→18:13)
[2023-06-01 04:43] LABS: Vancomycin Random 18.5 ug/ml
--- NOTE | 2023-06-01 05:30 | PTCARENOTE ---
B MERRITT Harden aware of labs, 1 liter sterile h20 w/ 150 bicarb hung at 100/hr,levo at 30mic,epi at 6 breanna, vaso at 0.04 units, 1 amp sodium bicarb IV given per order
[2023-06-01] MEDS: SODIUM BICARBONATE 1150 MEQ IV (05:34)
[2023-06-01 05:35] LABS: B.E. -13.6 mmol/L; O2 Saturation % 96.9 % (94-98); PCO2 44 mmHg (35-48); PO2 76 mmHg (83-108)
[2023-06-01 05:38] LABS: O2 Therapy 100%; pH 7.14 (7.35-7.45)
[2023-06-01 06:12] LABS: Lactic Acid 4.4 mmol/L (0.7-2.0)
--- NOTE | 2023-06-01 06:17 | PTCARENOTE ---
Katt Harden Np aware of lactic acid
[2023-06-01 06:23] LABS: Glucose - Point of Care 93 mg/dl (70-99)
[2023-06-01] MEDS: PITRESSIN 100 IV ×3 (06:45→14:53)
--- NOTE | 2023-06-01 08:00 | PTCARENOTE ---
Assumed care of patient. Pt rec'd sedated and intubated. Bilateral wrist restraints on. Occasionally responds to verbal stimuli. BAER's but weak. S1 S2 reg w/ NSR on monitor. DP's confirmed w/ doppler. +1 generalized edema. Knee hi SCD's on
and heels elevated on pillows. Intubated w/ #7.5 ETT 23cm center lip. Current vent settings: 28/540/+12/100%....sats 91%. Right lung diminished but clear to auscultation. Left lung diminished and coarse throughout. Suctioned orally and via ETT
for scant brown secretions. Abdomen obese...hypo BS. Right nare dhf (70cm) clamped....meds given w/o issue. FMS draining scant liquid brown stool. Temp sensing wilson...no urine output/scant urine output noted. Skin pale/jose luis in color. Right DL
PICC w/ levophed, epinephrine, vasopressin, fentanyl, diprivan and Na+HC03 gtts infusing....see interventions. Left radial jey...flushed and zeroed. 20P LH. VS documented. Will continue to monitor closely.
[2023-06-01 08:04] LABS: Absolute Neutrophils -Man Diff 2.1 10^3/uL (1.4-6.5); Band Neutrophils 37 % (0-3); Lymphocytes 5 % (20-51); Monocytes 3 % (2-9); Segmented Neutrophils 48 % (42-75)
[2023-06-01 08:05] LABS: Atypical Lymphocytes 2 %; Eosinophils 1 % (0-6); Metamyelocytes 3 % (-); Myelocytes 1 % (-); Normal RBC Morphology No; Nucleated Red Blood Cells 1 (-); Platelets Checked YES
[2023-06-01 08:06] LABS: Ovalocytes FEW; Target Cells FEW
[2023-06-01 08:07] LABS: Tear Drop Red Blood Cells FEW; Total Cells Counted 100
--- NOTE | 2023-06-01 08:09 | W.PN.INTV ---
Documented by User: Nicholas Hernández MD, Resident 06/01/23 13:59
Assessment
-
Assessment: 73-year-old male with past medical history of DM 2, hypertension, TEJ, and aortic stenosis s/p aortic valve replacement who presents with SOB with congestion for 3-4 days. He also endorsed hemoptysis with worsening cough. In the ER he
was found to be severely hypoxic with SpO2 in the low 80s on room air. Patient also hypotensive. CT scan showed a severe right upper lobe pneumonia. Patient on BiPAP and given antibiotics and IV fluids however respiratory status deteriorated
further and he was intubated. Patient now being transferred to ICU for further care and grinder hand services consulted for additional management/recommendations.
Chronic conditions SLATE MIXER: HTN, NIDDM, Obstructive sleep apnea on CPAP at night
Impression:
#Right upper lobe pneumonia/CAP
#Hemoptysis assist likely due to severe RUL pneumonia
#Acute hypoxic/hypercapnic respiratory failure due to above now on mechanical ventilation
#Acute kidney injury
#Lactic acidosis likely due to sepsis with impending shock
Plan:
- Retract ETT x 3-4 cm
- Administer 2-3L of NS 0.9% given his sepsis with impending shock (IBW: 50kg)
- Continue mechanical ventilation with daily SAT/SBT if clinically appropriate
- Trend blood gas daily with vent adjustments as needed
- Broad-spectrum antibiotics with infectious workup including sputum Cx, MRSA swab, urine antigens for Legionella/strep pneumonia, blood cultures
- Check urinalysis with reflex to urine culture
- Trend CBC and transfuse if needed to keep Hb>7, plt>50k
- If hemoptysis worsens then will consider bronchoscopy for airway visualization
- Maintain SpO2 >90-94%
- Maintain MAP>65
- Replete electrolytes with K>4, Mg>2
- Maintain euglycemia with goal BG 140-180
- nebulized bronchodilators q4hr for first 24 hrs
- Incentive spirometer
- DVT ppx � hold off on chemical prophylaxis for now given his hemoptysis
Critical care statement: A total of 40 minutes of critical care time was provided for this patient today. This includes management of unstable vital signs, evaluation of the patient at bedside, reviewing the patient's pertinent medical records
including radiographs, microbiology, laboratory evaluations, and discussion with primary team, consultants, pharmacy, nutrition, physical therapy, case management, charge nurse, critical care nursing, and respiratory therapy.
Data:
CTA Chest 05-31-2023:
No evidence of central pulmonary embolism.
Large right upper lobe consolidation with air bronchograms most likely representing pneumonia. Endobronchial lesion within the posterior segment of the upper lobe of the right lung with postobstructive atelectasis cannot be excluded. Recommend
short-term follow-up Chest CT to confirm complete resolution.
CXR 05-31-2023:
The endotracheal tube tip projects at the level of the bárbara. Recommend retraction by 3-4 cm.
Sternotomy wires, mediastinal clips, and an aortic valve prosthesis. Right upper lobe airspace consolidation compatible with pneumonia. No large pleural effusion or pneumothorax. The cardiomediastinal silhouette is stable. Chronic degenerative
changes of the spine.
Subjective Dataa
Subjective Data
Date of Service:
Date of Service: June 01, 2023
Review of Systems
General: Other (Intubated)
Objective Data
Data Reviewed
Vital Signs / I&O / Oxygen:
Vital Signs
Temp Pulse Resp BP Pulse Ox
99.1 F 95 28 99/63 91
06/01/23 05:55 06/01/23 07:55 06/01/23 07:55 06/01/23 06:00 06/01/23 07:56
Intake and Output
05/31/23 06/01/23 06/02/23
06:59 06:59 06:59
Intake Total 4526.0 / 4526.0
Output Total 160 / 160
Balance 4366.0 / 4366.0
SaO2 [A/C] 93
SaO2 [APV] 89
SaO2 91
Nasal Cannula flow liters per 6
minute
Physical Exam
General: Comfortable
HEENT: Normocephalic
Respiratory: ET Tube
GI: Distended
Labs/Micro/Reports
Lab Data
06/01/23 01:59
06/01/23 01:59
Laboratory Results
05/31/23 05/31/23 06/01/23
13:13 15:07 00:32
PT 17.1 H
INR 1.42
APTT 34.4
pH 7.21 L 7.14 L*
pCO2 55 H 54 H
pO2 66 L 61 L
HCO3 22.0 18.4 L
O2 Delivery Level 2l nc
06/01/23 06/01/23 06/01/23
01:59 03:40 05:26
PT 22.4 H
INR 1.98
APTT 41.6 H
pH 7.12 L* 7.14 L* 7.14 L*
pCO2 54 H 49 H 44
pO2 56 L* 64 L 76 L
HCO3 17.6 L 16.7 L 15.0 L*
O2 Delivery Level 100% 100% 100%
Microbiology
05/31/23 17:17 Nose Nasal Screen MRSA (PCR) - Final
MRSA not detected - performed by PCR methodology.
05/31/23 17:17 Sputum Gram Stain - Preliminary
05/31/23 14:54 Nasal Swab Influenza Types A & B (KATIA) - Final
Negative for Influenza A & B, NAAT
Negative results must be combined with clinical observations
and patient history.
Nucleic Acid Amplification test (NAAT)performed on the
[employer] platform.

Documented by User: Archie Araujo MD 06/01/23 16:52
Today's Communication / Plan
Recommendations
Please refer to my section of this note for official recommendations:
Continue mechanical ventilator
Re-look bronchoscopy today -> still with bleeding seen in proximal lingula
Transfuse FFP to reach goal INR<1.8
Nebulized TXA
Temporary HD catheter placement today and then will start CRRT
Goal SpO2 >88%
Guarded prognosis
Assessment
-
Assessment: 73-year-old male with past medical history of DM 2, hypertension, TEJ, and aortic stenosis s/p aortic valve replacement who presents with SOB with congestion for 3-4 days. He also endorsed hemoptysis with worsening cough. In the ER he
was found to be severely hypoxic with SpO2 in the low 80s on room air. Patient also hypotensive. CT scan showed a severe right upper lobe pneumonia. Patient on BiPAP and given antibiotics and IV fluids however respiratory status deteriorated
further and he was intubated. Patient now being transferred to ICU for further care and grinder hand services consulted for additional management/recommendations.
Chronic conditions SLATE MIXER: HTN, NIDDM, Obstructive sleep apnea on CPAP at night
Impression:
#Right upper lobe pneumonia/CAP due to Strep pyrogenes
#Septic shock
#Life threatening hemoptysis - seen in lingula
#Coagulopathy with concern for developing DIC in setting of sepsis
#Acute hypoxic/hypercapnic respiratory failure due to above now on mechanical ventilation
#Bacteremia with GPC in chains - suspect Strep vs Enterococcus
#Acute kidney injury
#Lactic acidosis due to shock state
#Metabolic acidosis with respiratory acidosis
Plan:
- Continue mechanical ventilation with daily SAT/SBT if clinically appropriate - (IBW: 50kg)
- Trend blood gas daily with vent adjustments as needed
- Broad-spectrum antibiotics with infectious workup including sputum Cx, MRSA swab, urine antigens for Legionella/strep pneumonia, blood cultures - currently on rocephin and IV vanco as per ID
- follow up urine culture
- Trend CBC and transfuse if needed to keep Hb>7, plt>50k
- May need HD --> will have IR insert temporary HD catheter today
- Continue nebulized TXA 500mg TID x 3-5 days
- Continue bicarb gtt
- Continue vasopressors with goal MAP>65
- Maintain SpO2 >88%
- Replete electrolytes with K>4, Mg>2
- Maintain euglycemia with goal BG 140-180
- nebulized bronchodilators q4hr for first 24-48 hrs
- DVT ppx � hold off on chemical prophylaxis for now given his hemoptysis
Code status - goals of care conversation held with family and decision made to make patient limited DNR. Okay with mechanical ventilation, dialysis, antibiotics, cardioversion and defibrillation if needed, but no CPR if patient were to develop a
cardiac arrest.
Critical care statement: A total of 48 minutes of critical care time was provided for this patient today. This includes management of unstable vital signs, evaluation of the patient at bedside, reviewing the patient's pertinent medical records
including radiographs, microbiology, laboratory evaluations, and discussion with primary team, consultants, pharmacy, nutrition, physical therapy, case management, charge nurse, critical care nursing, and respiratory therapy.
Data:
CTA Chest 05-31-2023:
No evidence of central pulmonary embolism.
Large right upper lobe consolidation with air bronchograms most likely representing pneumonia. Endobronchial lesion within the posterior segment of the upper lobe of the right lung with postobstructive atelectasis cannot be excluded. Recommend
short-term follow-up Chest CT to confirm complete resolution.
CXR 06-01-2023:Right lower lobe opacification suspicious for pneumonia without significant change. Cannot exclude some new small patchy left lower lobe opacification such as pneumonia.
CXR 06-01-2023:
Right lower lobe opacification suspicious for pneumonia without significant change.
Cannot exclude some new small patchy left lower lobe opacification such as pneumonia.
CXR 05-31-2023:
The endotracheal tube tip projects at the level of the bárbara. Recommend retraction by 3-4 cm.
Sternotomy wires, mediastinal clips, and an aortic valve prosthesis. Right upper lobe airspace consolidation compatible with pneumonia. No large pleural effusion or pneumothorax. The cardiomediastinal silhouette is stable. Chronic degenerative
changes of the spine.
Subjective Dataa
Subjective Data
Chief Complaint: Dietitian Helper Follow Up
Subjective:
Patient seen this morning. Still having hemoptysis albeit it is much improved. Pt desaturates easily during nursing care. He is on levophed at 30mcg/min, epi at 10mcg/min, vaso 0.04, BP 67/34, HR 104, SpO2 85%. BP via a line 87/47. Occasionally
awakenings, not following commands. Remains intubated with plateau pressure 31 this morning.
Objective Data
Physical Exam
General: Respiratory Distress (negative)
HEENT: Anicteric
Cardiovascular: S1-S2, Peripheral Edema (negative) and Cool Extremities
Respiratory: Wheeze (negative), Accessory Resp Muscle Use (negative), Stridor (negative), ET Tube (Mechanical breath sensory bilaterally) and Other (Coarse breath sounds heard bilaterally)
Neurology: Tremors (Negative) and Other (Sedated)
Skin: Dry and Other (Cool extremities)
[2023-06-01] MEDS: DIPRIVAN 100 IV ×2 (08:30→20:50)
[2023-06-01] MEDS: LUMIGAN 0.01% 1 DROP BOTH EYES (08:31)
[2023-06-01 08:32] LABS: Glycohemoglobin (HgbA1c) 6.4 % (4.0-5.6)
[2023-06-01] MEDS: PROSCAR 5 MG TUBE (08:33)
[2023-06-01] MEDS: NSS (PRESERVATIVE FREE) 10 ML IV (08:33)
[2023-06-01] MEDS: SENNA SYRUP 8.80000000000000071 MG TUBE (08:33)
[2023-06-01] MEDS: PROTONIX IV 40 MG IV (08:33)
[2023-06-01] MEDS: TIMOPTIC 0.5% OPHTHALMIC SOLUTION 1 DROP BOTH EYES ×2 (08:34→19:47)
--- NOTE | 2023-06-01 08:57 | PHA.VAN.FU ---
Addendum entered and electronically signed by Veronica Langford [facility] 06/01/23 16:11:
Patient to start CVVHD at 1.5 L/H.
Will give supplemental Vanc 500mg to ensure levels maintained
Random in AM to re-assess
Original Note:
Vancomycin Assessment / Plan
- Assessment
Renal Function: SCR Increasing
In the past 24 hrs, patient has been: Febrile
- Assessment - Therapeutic Drug Monitoring
Random Level: 18.5 - drawn ~9H after 2000mg loading dose
- Dosing Plan
Dosing by Level: Hold off on dosing today (due to level at higher end of range and SCR increasing)
- Monitoring Plan
Random Level: 06/01 0600
- Follow Up
Pharmacy will continue to follow.
Vancomycin Follow UP
- -
Patient Age: 73
Patient Sex: Male
Vancomycin Day #: 2
Indication: Pulmonary/Respiratory
Requesting Provider: Dr. Ag
Pertinent Antimicrobial Allergies:
no pertinent antimicrobial allergies
Height / Weight:
Height 6 ft
Actual Weight 124.2 kg
Pertinent Past Medical History: BMI ~34, DM II
- Vital Signs / Lab Results
Temp Pulse Resp BP Pulse Ox
99.9 F 95 28 99/63 91
06/01/23 08:12 06/01/23 07:55 06/01/23 07:55 06/01/23 06:00 06/01/23 07:56
Lab Results - Hematology
05/31/23 06/01/23
13:13 01:59
WBC 5.8 2.5 L
Band Neutrophils 23 H 37 H D
Lab Results - Chemistry
05/31/23 05/31/23 06/01/23
13:13 13:39 01:59
BUN Cancelled 30 H 38 H
Creatinine Cancelled 2.4 H 3.4 H
Estimated Creat Clear Cancelled 35 25
Albumin Cancelled 3.9 2.6 L
05/31/23 05/31/23 05/31/23
13:21 17:42 22:03
Lactic Acid 3.8 H 3.8 H 3.3 H
06/01/23 06/01/23
01:59 05:26
Lactic Acid 3.8 H 4.4 H*
Lab Results - Urine
05/31/23
19:58
Urine Nitrite (Reflex) Negative
Leukocyte Esterase Rfl Trace A
Ur Squamous Epith Cells 0-2
Microbiology Results
05/31/23 13:39 Blood Culture - Preliminary
Blood/Venous Positive culture in progress
Gram Stain - Final
05/31/23 13:21 Blood Culture - Preliminary
Blood/Venous Positive culture in progress
Gram Stain - Final
05/31/23 17:17 Nasal Screen MRSA (PCR) - Final
Nose MRSA not detected - performed by PCR methodology.
05/31/23 17:17 Gram Stain - Preliminary
Sputum
05/31/23 14:54 Influenza Types A & B (KATIA) - Final
Nasal Swab Negative for Influenza A & B, NAAT
Negative results must be combined with clinical observations
and patient history.
Nucleic Acid Amplification test (NAAT)performed on the
[employer] platform.
Therapeutic Drug Monitoring
Random Vancomycin 18.5 ug/ml 06/01/23 03:40
--- NOTE | 2023-06-01 09:20 | CON.ID ---
Addendum entered and electronically signed by Aure Patel MD 06/01/23 13:05:
Sputum culture: Group A streptococcus.
Possible toxic shock from Group A streptococcus.
Add clindamycin 900mg IV q8h, short course as toxin inhibitor.
Original Note:
Consultation
-
Date/Time Consultation Requested: June 01, 2023 0900
Date/Time Consultation Performed: June 01, 2023 0920
Requesting Provider: Dr. Jae Ag
Performing Provider: Dr. Aure Patel
Reason for Consultation: Sepsis, pneumonia, bacteremia
Chief Complaint / Past History
Chief Complaint
Coughing up blood.
History of Present Illness
History obtained from review of system as patient is currently sedated and intubated. He is a 73 yea old male with hx DM, bio-AVR who presented to ED on 05/31/2023 due 4 day history of worsening respiratory symptoms. He felt congested with cough,
malaise, and weakness. + loose stools x 2 days. He then started coughing up blood and came to ED. Pt febrile T= 102.6, +bandemia, Lactic acid 3.8, RACHEL,, hypoxic, hypotensive. Chest CT with large RUL infiltrate. During intubation, blood noted coming
out of ETT. He underwent emergent bronchoscope to control hemoptysis. Currently on Vancomycin and Zosyn.
Past History
Additional Past Medical History:
Diabetes mellitus
Hypertension
HLD
s/p Bioprosthetic aortic valve replacement 2014
Sleep apnea on CPAP
Obesity BMI 37
Allergy History:
bee venom protein (honey bee) Allergy (Verified 05/31/23 13:24)
Hives
Medications Reviewed: Yes
Current Antibiotics:
Zosyn
Vancomycin
Social History
Tobacco: Non-Smoker
Alcohol: None
Drug: None
Personal:
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
Family History
Family History: Not Pertinent
Review of Systems
Review of Systems
Unable to obtain as patient currently intubated
Vital Signs
Temp Pulse Resp BP Pulse Ox
99.9 F 95 28 99/63 91
06/01/23 08:12 06/01/23 07:55 06/01/23 07:55 06/01/23 06:00 06/01/23 07:56
Selected Entries
05/31/23
18:00
Temp 103.0 F H
Physical Exam
Physical Exam
Constitutional: Acutely Ill and Obese
Cardiovascular: Regular Rate and S1/S2
Pulmonary: Clear (clear anteriorly)
Gastrointestinal: Soft, Non Tender, Non Distended and Normal Bowel Sounds
Genito-Urinary: Godfrey; Negative CVA Tenderness
Extremities: Negative Edema
Skin: Negative Rash
Neurological: Other (sedated)
Lines: PICC (RUE: no erythema)
Lab / Diagnostic Study Results
06/01/23 01:59
06/01/23 01:59
Total Counted 100 06/01/23 01:59
Abs Neuts (Manual) 2.1 10^3/uL (1.4-6.5) 06/01/23 01:59
Segmented Neutrophils 48 % (42-75) 06/01/23 01:59
Band Neutrophils 37 % (0-3) H D 06/01/23 01:59
Lymphocytes (Manual) 5 % (20-51) L 06/01/23 01:59
Eosinophils (Manual) 1 % (0-6) 06/01/23 01:59
PT 22.4 Sec (11.4-14.6) H 06/01/23 03:40
INR 1.98 06/01/23 03:40
Lactic Acid 4.4 mmol/L (0.7-2.0) H* 06/01/23 05:26
Ur Squamous Epith Cells 0-2 /LPF (Few) 05/31/23 19:58
Microbiology Results
Micro:
05/31/23 13:39 Blood Culture - Preliminary
Blood/Venous Positive culture in progress
Gram Stain - Final
05/31/23 13:21 Blood Culture - Preliminary
Blood/Venous Positive culture in progress
Gram Stain - Final
05/31/23 22:04 Salmonella/Shigella Culture - Pending
Feces/Stool Campylobacter Culture - Pending
Shiga Toxin Test - Pending
05/31/23 19:58 Legionella Urinary Antigen - Pending
Urine Streptococcus pneumoniae Antigen (M - Pending
05/31/23 17:17 Nasal Screen MRSA (PCR) - Final
Nose MRSA not detected - performed by PCR methodology.
05/31/23 17:17 Respiratory Culture - Pending
Sputum Gram Stain - Preliminary
05/31/23 14:54 Influenza Types A & B (KATIA) - Final
Nasal Swab Negative for Influenza A & B, NAAT
Negative results must be combined with clinical observations
and patient history.
Nucleic Acid Amplification test (NAAT)performed on the
[employer] platform.
05/31/[address]: Large right upper lobe consolidation with air bronchograms most likely representing pneumonia. Endobronchial lesion within the posterior segment of the upper lobe of the right lung with postobstructive atelectasis cannot be
excluded.
Assessment / Plan
# Suspect invasive Strep pneumo RUL pneumonia
# GPC in chains bacteremia -> suspect Strep pneumo
# Septic shock
# RACHEL worse
# Acute hypoxemic respiratory failure, intubated 05/31/23
- Repeat blood cx's.
-Follow sputum cx.
- Replace Zosyn with ceftriaxone 2gIV q24.
- Continue Vancomycin for now pending final blood cx data.
- Trend temps, wbc, bandemia, BP, oxygen status
%Additional medical history.
Diabetes mellitus
Hypertension
HLD
s/p Bioprosthetic aortic valve replacement 2014
Sleep apnea on CPAP
Obesity BMI 37
--- NOTE | 2023-06-01 09:39 | W.CON.NEPH ---
Consultation
-
Date/Time Consultation Requested: June 01, 2023 7 AM
Date/Time Consultation Performed: June 01, 2023 9 AM
Requesting Provider: Dr. Ag
Performing Provider: Dr. Moon
Reason for Consultation: Acute kidney injury
Medical History
-
Chief Complaint: Acute kidney injury
History of Present Illness:
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 He began having issues on Wednesday prior to
admission. Congested and was having difficulty sleeping. 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 He had significant shortness of breath but when he went returned to home he developed vomiting which was
bloody and then a black diarrheal movement. At that point he called 911 and was brought to the emergency room he was noted to be significantly hypotensive. Once in the hospital he had significant hemoptysis requiring intubation. He was placed on
pressors to control his blood pressure and is currently critically ill in the ICU on the ventilator and pressors and sedation. His creatinine at the time of admission was 2.4 is now risen up to 3.4 he is having decreased urine output. He also has
an evolving metabolic acidosis as well as lactic acidosis.
Past Medical History
Hypertension, diabetes mellitus type 2, sleep apnea on CPAP, bioprosthetic aortic valve 2014 [facility], hyperlipidemia
Social History
Tobacco: Non-Smoker
Alcohol: None
Family History
Family History: Not Pertinent
Allergies / Home Medications
Allergy/AdvReac Type Severity Reaction Status Date / Time
bee venom protein (honey bee) Allergy Hives Verified 05/31/23 13:24
�Medication �Instructions �Recorded �Confirmed �Type
Dayquil 1 dose PO DAILYPRN PRN cough 05/31/23 05/31/23 History
aspirin 81 mg tablet,delayed 81 mg PO DAILY Blood Clot 05/31/23 05/31/23 History
release Prevention/Tx
atorvastatin 10 mg tablet 10 mg PO DAILY High Cholesterol 05/31/23 05/31/23 History
bimatoprost 0.01 % eye drops 1 drp BOTH EYES DAILY Eye Condition 05/31/23 05/31/23 History
(Lumigan)
celecoxib 200 mg capsule 200 mg PO DAILY Pain 05/31/23 05/31/23 History
sdslogrng-EDS-MF-acetaminophen 7.5 30 ml PO HSPRN PRN cough 05/31/23 05/31/23 History
mg-60 [id number]/30mL oral liqd
empagliflozin 10 mg tablet 10 mg PO DAILY Diabetes 05/31/23 05/31/23 History
(Jardiance)
esomeprazole magnesium 40 mg 40 mg PO DAILY Gastrointestinal 05/31/23 05/31/23 History
capsule,delayed release Issue
finasteride 5 mg tablet 5 mg PO DAILY Urinary Issue 05/31/23 05/31/23 History
lisinopril 2.5 mg tablet 2.5 mg PO DAILY Blood Pressure 05/31/23 05/31/23 History
metformin 500 mg tablet 1,000 mg PO BID Diabetes 05/31/23 05/31/23 History
metoprolol succinate 25 mg 25 mg PO DAILY Heart 05/31/23 05/31/23 History
tablet,extended release 24 hr Disease/Condition
timolol maleate 0.5 % eye drops 1 drp BOTH EYES BID Eye Condition 05/31/23 05/31/23 History
Review of Systems
-
Could not be obtained given the patient's intubated and sedated status
Unable to obtain full review of systems at this time due to: Patient Intubation and Patient Non Verbal
Physical Exam
Vital Signs
Vital Signs
Temp Pulse Resp BP Pulse Ox
99.9 F 95 28 99/63 91
06/01/23 08:12 06/01/23 07:55 06/01/23 07:55 06/01/23 06:00 06/01/23 07:56
Lab Results
WBC 2.5 10^3/uL (4.8-10.8) L 06/01/23 01:59
RBC 4.42 10^6/uL (4.70-6.10) L 06/01/23 01:59
Hgb 14.1 g/dL (13.0-18.0) 06/01/23 01:59
Hct 41.6 % (39.0-52.0) 06/01/23 01:59
Plt Count 93 10^3/uL (130-400) L 06/01/23 01:59
Sodium 136 mmol/L (135-145) 06/01/23 01:59
Potassium 4.6 mmol/L (3.5-5.1) 06/01/23 01:59
Chloride 107 mmol/L (98-107) 06/01/23 01:59
Carbon Dioxide 17 mmol/L (22-30) L 06/01/23 01:59
BUN 38 mg/dl (9-20) H 06/01/23 01:59
Creatinine 3.4 mg/dL (0.7-1.3) H 06/01/23 01:59
eGFR 18.07 06/01/23 01:59
Glucose 89 mg/dl (70-99) 06/01/23 01:59
Calcium 7.4 mg/dl (8.4-10.2) L 06/01/23 01:59
Phosphorus 7.5 mg/dl (2.5-4.5) H 06/01/23 01:59
Qaz-A-Gomyagcwsho Pept 8710 pg/ml 05/31/23 13:39
Albumin 2.6 g/dl (3.5-5.0) L 06/01/23 01:59
Physical Exam
Patient is awake alert oriented and in no distress. Mood and affect were pleasant, insight and judgment were good. Pupils are equal round and reactive to light, extraocular movements are intact, sclera were anicteric. Hearing was normal, ears and
nose are intact. Neck was supple with trachea midline and no thyromegaly. Heart was regular rate and rhythm without rubs. Lower extremities with 2+edema. Lungs were coarse with decreased breath sounds on the right and with normal excursion. Abdomen
was soft, nontender, with no active bowel sounds, and no hepatosplenomegaly. Skin was without rash and with normal turgor.
Data Reviewed
-
Radiology: Image Personally Visualized and interpreted (Chest x-ray on 05/31/2023 by my read shows right upper lobe pneumonia)
CT Scan: Report Reviewed by me (CT chest PE protocol on 05/31/2023 shows no pulmonary embolism but a large right upper lobe pneumonia)
Medical Tests (Nuc Med, Echo etc): Image Personally Visualized and interpreted (EKG on 05/31/2023 by my reading shows normal sinus rhythm first-degree AV block nonspecific T wave abnormalities)
Labs: Labs Reviewed by me (Creatinine 3.4, ABG 7.1 , platelets 93, WBC 2.5, hemoglobin 14.1, lactic acid 4.4, AST 60, ALT 33, urinalysis with 1+ blood, 2+ albumin, 11 red cells)
Old Records: Requested
Assessment/Plan
-
Assessment:
Right upper lobe pneumonia
Sepsis
Hypotension
VDRF
Acute kidney injury
Metabolic acidosis
Diabetes mellitus type 2
Hemoptysis
GI bleed
Lactic acidosis
Plan:
Keep mean arterial pressure greater than 65
Follow creatinine
Will likely see worsening of creatinine given hypotension as well as contrast exposure
follow lactate
abx for PNA
stress steroids
continue bicarb drip
follow BMP
high likelihood of needing HD, likely CRRT in next 24-48 hrs.
discussed with on phone. she understands
critical care time 40 minutes
[2023-06-01 09:52] LABS: Lactic Acid 4.5 mmol/L (0.7-2.0)
[2023-06-01] MEDS: ROCEPHIN 2000 MG IV (10:26)
[2023-06-01] MEDS: STERILE WATER FOR INJECTION 20 ML IV (10:26)
[2023-06-01] MEDS: ADRENALIN 258 MG IV (12:06)
[2023-06-01 12:07] LABS: Glucose - Point of Care 111 mg/dl (70-99)
[2023-06-01 12:07] LABS: B.E. -12.2 mmol/L; O2 Saturation % 89.5 % (94-98); PCO2 42 mmHg (35-48)
[2023-06-01] MEDS: NIMBEX 19 MG IV (12:07)
[2023-06-01] MEDS: NEO-SYNEPHRINE 1% 260 MG IV (12:12)
--- NOTE | 2023-06-01 12:15 | PTCARENOTE ---
No major changes in physical assessment since am. King gtt initiated per . Remains intubated, sedated and on all previous gtts. Family at bedside and fully updated on plan of care. Will continue to monitor closely.
[2023-06-01 12:25] LABS: HCO3 15.7 mmol/L (21-28); PO2 57 mmHg (83-108); pH 7.18 (7.35-7.45)
[2023-06-01] MEDS: CLEOCIN 50 IV ×2 (13:28→21:52)
--- NOTE | 2023-06-01 13:30 | PTCARENOTE ---
Bronch done at bedside by without issue. Epi 5mls instilled during bronch by ...charted on APR.
[2023-06-01] MEDS: ADRENALIN 1 MG/10 ML TOPICAL (13:32)
--- NOTE | 2023-06-01 13:32 | W.SUR.POST ---
Surgical Immediate Post Op
Note
Bedside Bronchoscopy Procedure Note
Pre Op Diagnosis: Life-threatening hemoptysis; acute hypoxia; ventilator dependent respiratory failure
Post Op Diagnosis: Same as above
Procedure Performed: Diagnostic/therapeutic bronchoscopy
Primary Surgeon/proceduralist: Dr. Archie Araujo
Secondary Surgeons: N/A
Anesthesia: N/A
Estimated Blood Loss: 15cc (not due to procedure but due to patient's lung pathology)
Fluids: N/A
Drains/Shunts: N/A
Specimens/Cultures: N/A
Doppler/Duplex/Angio (Y/N): N/A
Complications: N/A
Procedure/Operative Findings: Verbal consent obtained from family and agreed to the risks of procedure including pneumothorax, bleeding and infection. Portable diagnostic bronchoscopy was performed due to massive hemoptysis and to relook at airway
is to assess for continued airway hemorrhage. After bronchoscope was inserted into the airway via ETT, the bárbara was sharp. Thin secretions were seen along entire tracheobronchial tree, in addition to dark red blood without clots. Therapeutic
suctioning was performed and active oozing of blood was seen in the left upper lobe at the entryway to the lingular division. Combination of chilled NS 0.9% (total of 10cc), epinephrine 1:1000 (total of 5mL) were given with hemostasis achieved.
The bilateral tracheobronchial tree was reevaluated and all bronchi were patent down to segmental level. The bronchoscope was removed entirely from the patient's airway via ETT and the procedure ended. There were no immediate complications.
Family was updated after the procedure and all questions were answered.
--- NOTE | 2023-06-01 14:20 | CM ---
CM following re: discharge planning.
Discussed in rounds, reviewed pt's chart, met with pt.
pt is a 73 year old male, admitted with primary dx of Right upper lobe pneumonia/CAP. Hemoptysis assist likely due to severe RUL pneumonia.
Acute hypoxic/hypercapnic respiratory failure due to above now on mechanical ventilation. per Rounds meeting pt remains intubated, continue supportive care.
Pt lives with spouse in a 2SH, 2 steps to enter, has 4 suportive daughters. 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
PCP: Marlon Ramsey
Pharmacy: [facility]
D/C plan: uncertain at this time and will depend on pt's progress.
CM will follow with discharge plan updates as hospitalization progresses
[2023-06-01 14:24] LABS: Lactic Acid 6.9 mmol/L (0.7-2.0)
[2023-06-01 14:32] LABS: Blood Urea Nitrogen 43 mg/dl (9-20); Carbon Dioxide 14 mmol/L (22-30); Chloride 101 mmol/L (98-107); Glucose 121 mg/dl (70-99); Potassium 4.9 mmol/L (3.5-5.1); Sodium 134 mmol/L (135-145)
[2023-06-01 14:45] LABS: Estimated Creatinine Clearance 21 ml/min; eGFR 14.03
--- NOTE | 2023-06-01 15:06 | W.PN.UPDATE ---
Update Note
Progress Note Update
RTSP, discussed with Kaylen at bedside.
BP remains low, now on neosynephrine/epi/levo/vasopressin. Can still max out stacie. keep MAP > 65 given that lactate continue to rise.
Cr also still rising to 4.2. worsening metabolic acidosis as well. IV calcium to help BP.
no UOP. repeat scope with some oozing, stopped with injection
will need CRRT at this time
IR contacted for temp HD CVC
orders for CRRT placed
stop bicarb gtt once CRRT begins. no anticoagulation on CRRT given hemoptysis
await serologies
critical care time 40 minutes
--- NOTE | 2023-06-01 15:10 | PTCARENOTE ---
Reviewed plan of care w/ and . agreeable to temporary HD cath being placed by IR for possible CRRT. Pt's and dtrs at bedside w/ family shirt closer for patient to receive last rites.
--- NOTE | 2023-06-01 15:11 | W.PN.HOSP.TC ---
Today's Communication/Plan
-
ICU care including IV antibiotics, IV fluids and vasopressors
Vent management, continue sedation.
Total Critical Care Time__45___ minutes. I was immediately available to the patient and staff. I personally examined, reviewed labs, diagnostic images/reports, interpretations, treatment plans, discussed patient care with other providers and
family or caregivers (if patient is unable to make decisions), entered orders as appropriate and documented the medical record.
Assessment / Plan
Assessment / Plan
IMPRESSION:
Acute hypoxic/hypercarbic respiratory failure.
VDRF.
� Intubated in ED for severe respiratory distress on 05/31/2023.
Large right upper lobe pneumonia, community-acquired.
Gram-positive cocci bacteremia
Severe hemoptysis
Severe sepsis secondary to pneumonia.
Septic shock with hypotension not responsive to IV fluids, multiple vasopressors required
Lactic acidosis.
Acute kidney injury with oliguria
Mild hyperbilirubinemia
Conditions prior to admission:
Diabetes type 2 [id number].
Dyslipidemia.
Hypertension.
Obstructive sleep apnea on CPAP at night.
Status post bioprosthetic aortic valve 2014.
Obesity with BMI of 34
PLAN:
Acute hypoxic/hypercarbic respiratory failure
Large right upper lobe pneumonia, community-acquired. Given size of infiltrate, as well as hemoptysis high suspicion for underlying lung mass.
VDRF.
� Intubated on 05/30 in ED for severe respiratory distress.
Remains on the vent assist-control with high oxygen requirements.
Continue sedation
Vent settings adjusted per complaint investigator
Follow ABG
Ongoing hemoptysis.
Status post bronchoscopy x 2 on 05/31 revealing lingular hemorrhage treated with hemostasis
Avoid heparin products.
Continue treatment with inhaled tranexamic acid
Severe sepsis secondary to right upper lobe pneumonia.
Gram-positive cocci bacteremia.
ID consultation.
Repeat blood culture for clearance.
Antibiotics narrowed to vancomycin/ceftriaxone.
Septic shock with lactic acidosis and acute kidney injury.
Oliguric
Rising creatinine.
Nephrology consultation.
Continue IV fluids with bicarbonate.
Low threshold for renal replacement therapy initiation.
Maintain MAP 55-60.
Initiated on multiple vasopressors including norepinephrine, epinephrine, vasopressin.
IV corticosteroids stress dose initiated.
Hold lisinopril.
Urinalysis bland.
Additional workup for vasculitis including ANCA antibodies and anticoagulant membrane antibodies pending.
Essential hypertension.
Hold preadmission lisinopril and metoprolol due to hypotension.
Type 2 diabetes.
Hemoglobin A1c 6.4
Hold oral medications including metformin and Jardiance.
N.p.o. given aspiration risk in patient with severe respiratory distress.
Basal bolus protocol with serial Accu-Cheks.
IV PPI.
Mechanical DVT prophylaxis
Anticipated Discharge: > 48 hours
Subjective/Interval History
-
Date of Service: June 01, 2023
Objective Data
-
Labs:
Laboratory Results
06/01/23 06/01/23 06/01/23
03:40 05:26 11:53
PT 22.4 H
INR 1.98
APTT 41.6 H
HCO3 16.7 L 15.0 L* 15.7 L*
Sodium
Potassium
Chloride
Carbon Dioxide
BUN
Creatinine
Glucose
Calcium
06/01/23
13:51
PT
INR
APTT
HCO3
Sodium 134 L
Potassium 4.9
Chloride 101
Carbon Dioxide 14 L*
BUN 43 H
Creatinine 4.2 H*
Glucose 121 H
Calcium 7.0 L
Vital Signs:
Vital Signs
Temp Pulse Resp BP Pulse Ox
101.1 F H 107 28 92/67 81
06/01/23 11:43 06/01/23 15:00 06/01/23 15:00 06/01/23 14:00 06/01/23 15:00
I&O
05/31/23 06/01/23 06/02/23
06:59 06:59 06:59
Intake Total 4526.0 / 4741.3 2199.4 / 2199.4
Output Total 160 / 160
Balance 4366.0 / 4581.3 2182.4 / 2182.4
Physical Exam
-
General: Well Developed and No Apparent Distress
HEENT: Normocephalic, Atraumatic and Moist Mucous Membranes
Respiratory: Clear to Auscultation
Cardiac: Regular Rhythm and S1/S2; Negative Murmur, Rub or Gallop
GI: Soft, Nontender, Nondistended and Normal Bowel Sounds; Negative Organomegaly
Rectal: Deferred by Provider
Musculoskeletal: No Clubbing, No Cyanosis and No Edema
Skin: Negative Rash
Neuro: Sedated and Nonfocal/Grossly Intact
--- NOTE | 2023-06-01 15:45 | PTCARENOTE ---
IR at bedside to insert a temporary HD cath.
[2023-06-01] MEDS: RFP-400 Hemodialysis Solution (K+ 2 mEq/L) 15000 ML CRRT-IRR (16:45)
--- NOTE | 2023-06-01 17:15 | PTCARENOTE ---
CRRT initiated per MD orders. See intervention.
--- NOTE | 2023-06-01 17:17 | W.PN.UPDATE ---
Update Note
Progress Note Update
RTSP. CRRT in progress. RIJ temp CVC in place. goal UF 25ml/hr net
2K bath. BP MAP >64 with increased neosynephrine drip.
no anticoagulation at this time
--- NOTE | 2023-06-01 17:45 | PTCARENOTE ---
At approximately 1730ish, pt became slightly agitated and nodded head that he had pain. An abrupt airway leak occurred...resp therapy called stat. Possible cuff rupture noted. MD at bedside. Anesthesia called. Pt re-intubated w/ #8 ETT 25cm
right lip....maintained previous vent settings. Will obtain CXR to confirm placement.
--- NOTE | 2023-06-01 18:03 | W.PN.ANESINT ---
Anesthesia Intubation Note
- Intubation Note
Intubation Note:
Diagnosis: s/p resp failure
Blade: Glidescope #4
Tube Size: 8.0
Depth: 20 cm
Side Taped:right
Drugs Used:none
Grade View:II
EtCO2 Present:yes
Atraumatic:yes
Attempts: 1 attempt by me, [address] Patel prior to arrival
Insertion Start and Stop Time:1166-9364
SaO2 Pre:60
SaO2 Post:98
Glidescope Used:yes
Other Airway Adjustments:
Pre-Oxygenated:yes
Portable Chest X-Ray:ordered
RSI:yes
Suctioned:yes
Bilateral Breath Sounds Confirmed: yes
Vent Settings:
Settings per _x__Attending Physician
[2023-06-01 18:16] LABS: O2 Saturation % 76.8 % (94-98); PCO2 54 mmHg (35-48)
[2023-06-01 18:17] LABS: HCO3 12.7 mmol/L (21-28); PO2 52 mmHg (83-108); pH 6.98 (7.35-7.45)
[2023-06-01 18:21] LABS: Glucose - Point of Care 89 mg/dl (70-99)
[2023-06-01 18:29] LABS: Lactic Acid 11.2 mmol/L (0.7-2.0)
--- NOTE | 2023-06-01 18:30 | PTCARENOTE ---
CRRT w/o issue. CXR done post intubation. Family aware of re-intubation. Pt appears mottled. Challenging to obtain O2 saturation. Will transfuse 1 unit FFP per MD order. Bicarb gtt stopped after initiation of CRRT. Will continue to monitor
closely.
[2023-06-01] MEDS: SENNA SYRUP TUBE (19:42)
--- NOTE | 2023-06-01 20:00 | PTCARENOTE ---
Addendum entered by Key Pastor RN 06/01/23 21:33:
ASSISTED LIVING ASSOCIATE via R IJ HD cath- see flow sheet
Original Note:
Rec'd pt with wrists restrained, diprivan gtt at 10mic, fent gtt at 100mic, pupils sluggish at 2mm, no response to commands, SR/ ST, occas pac, left rad jey w/ good wave form, flushes well, accurate to cuff, goal- map > 65, levophed gtt at
30mic,stacie gtt at 140 breanna, epi at 6 breanna, vasopressin at 0.04 units, to wean epi first as robin, see flow sheet for titrations, distal pulses via doppler, + anasarca,skin warm/dry, temp 100.5, # 8 oral ett-25 cm- moved to R side, ac 28, tv 540, 12 peep,
100%, unable to obtain a sat due to mottling, cold extremities, lungs coarse, suct for sm amt bloody secretions, RR 28, hypo bowel sounds,abd distended, firm, left nares dobhof clamped, fecal mgmt sys intact for sm amt brown liquid stool, wilson in
place- no urine output, 1 unit FFP hung per order, family in to see pt- 2 at a time, each updated
[2023-06-01 20:25] LABS: O2 Saturation % 75.2 % (94-98); PCO2 47 mmHg (35-48)
[2023-06-01 20:27] LABS: HCO3 11.3 mmol/L (21-28); PO2 48 mmHg (83-108); pH 6.99 (7.35-7.45)
--- NOTE | 2023-06-01 20:30 | PTCARENOTE ---
K mamie Reis notified of abg result, 2 amps bicarb iv given at 2044
[2023-06-01] MEDS: VANCOCIN HCL 500 MG 100 IV (20:46)
--- NOTE | 2023-06-01 21:15 | PTCARENOTE ---
family meeting with , dtrs and rest of immediate family by Jacques Reis NP and self, after discussion, family wishes to wait till next abg result and then possibly make pt comfort
--- NOTE | 2023-06-01 22:00 | PTCARENOTE ---
family at this time wish for pt to made comfort, to extubate pt, stop CRRT & stop pressors, Jacques Reis COMPUTER SYSTEMS INTEGRATOR in to discuss this with family. All family members in agreement .2214- CRRT dc'd
5 fent 50mic iv given as ordered
2229- pt extubated by resp therapist; family then came in; all pressors were turned off at this time
pt at 2241 with all family members at bedside; family took home pt's glasses
2323- ELEUTERIO notified
--- NOTE | 2023-06-01 22:30 | W.PN.UPDATE ---
Update Note
Progress Note Update
Discussed plan of care and worsening hypoxemic respiratory acidosis most recent ABG results with Dr. 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 Multiple updates and conversations with family at
bedside. Updated family as to plan of care, treatment plan and discussed comfort measures. Family made the decision to move to comfort measures at 2215. Patient extubated to comfort measures which then CRRT and vasopressors turned off, fentanyl
gtt transitioned to comfort care protocol. Family at bedside at time of , support given.
--- NOTE | 2023-06-01 22:33 | RESPNOTE ---
PT was terminally extubated and was not placed on any supplemental oxygen at this time. PT was suctioned both orally and endo-trachially pre and post extubation. PT tolerated extubation well, with family, nursing and respiratory at the bedside.
--- NOTE | 2023-06-01 22:51 | W.PN.DEATH ---
Pronouncement of
-
Called to see patient to pronounce.
No spontaneous heart tones or respirations noted.
Patient not responsive to verbal stimuli.
Patient is pronounced .
Time of : 22:43
Date of : 06/01/23
Cause of : sepsis, pneumonia
Family Notified: Yes ( and family at bedside at time of )
--- NOTE | 2023-06-02 00:15 | PTCARENOTE ---
[place] care done[place] [facility] [place]
[2023-06-03 00:41] LABS: Complement C3 82 mg/dl (88-165)
[2023-06-03 07:23] LABS: ANA, IgG Reflex to HEp-2 Detected (None Detected)
[2023-06-04 02:03] LABS: Glomerular Base Membrane Ab 0 AU/mL (0-19); Myeloperoxidase Antibody 0 AU/mL (0-19); Serine Protease-3, IgG 0 AU/mL (0-19)
[2023-06-04 07:15] LABS: ANA, HEp-2, IgG <1:80 (<1:80)
== END 2023-06-01 22:43 | disposition expired | DRG 871 ==
LOC: ICU 15:59
PROVIDERS: Nurse Practitioner Family; Nurse Practitioner Primary Care; ADMITTING PHYSICIAN Internal Medicine; CONSULT PHYSICIAN Internal Medicine Critical Care Medicine; CONSULT PHYSICIAN Internal Medicine Infectious Disease; CONSULT PHYSICIAN Specialist; EMERGENCY PHYSICIAN Emergency Medicine; FAMILY PHYSICIAN Family Medicine
PROC: 0BH17EZ Insertion of Endotracheal Airway into Trachea, Via Natural or Artificial Opening (ICD-10-PCS; 2023-05-31)
PROC: 30233K1 Transfusion of Nonautologous Frozen Plasma into Peripheral Vein, Percutaneous Approach (ICD-10-PCS; 2023-05-31)
PROC: 5A1935Z Respiratory Ventilation, Less than 24 Consecutive Hours (ICD-10-PCS; 2023-05-31)
PROC: 0B9G8ZZ Drainage of Left Upper Lung Lobe, Via Natural or Artificial Opening Endoscopic (ICD-10-PCS; 2023-06-01)
DX: A41.9 Sepsis, unspecified organism (principal); J18.9 Pneumonia, unspecified organism; J96.01 Acute respiratory failure with hypoxia; J96.02 Acute respiratory failure with hypercapnia; E87.4 Mixed disorder of acid-base balance; N17.9 Acute kidney failure, unspecified; R04.2 Hemoptysis; Z99.11 Dependence on respirator [ventilator] status; B96.89 Other specified bacterial agents as the cause of diseases classified elsewhere; E11.9 Type 2 diabetes mellitus without complications; I10 Essential (primary) hypertension; G47.33 Obstructive sleep apnea (adult) (pediatric); Z95.3 Presence of xenogenic heart valve
CPT/HCPCS: 36600; 71045; 71275; 74018; 80048; 80053; 80202; 81003; 81015; 82533; 82805; 82962; 83036; 83516; 83605; 83735; 83880; 84100; 84443; 84478; 84484; 85025; 85384; 85610; 85730; 86038; 86039; 86160; 86850; 86900; 86901; 87040; 87045; 87046; 87070; 87077; 87147; 87149; 87205; 87427; 87449; 87502; 87641; 87811; 87899; 93005; 94002; 94003; 94640; 94660; 96365; 96375; 99285; P9047; P9059; Q9967